=== PATIENT | female | born 1995 | race Caucasian/White ===

== ENCOUNTER → 2020-08-05 | Outpatient (CLI) | payer MEDICAID ==
--- NOTE | 2020-08-06 06:59 | US ---
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 GLAND SIZE: Right Lobe: 5.9 x 1.8 x 1.9 cm Overall Parenchyma: grossly heterogenous Left Lobe: 5.6 x 1.2 x 2.0 cm Overall Parenchyma: grossly heterogenous Isthmus Thickness: 0.4 cm NODULES RIGHT: # of nodules measured on right: 0 LEFT: # of nodules measured on left: 0 ISTHMUS: # of nodules measured in the isthmus: 0 Bilateral neck scanned, no evidence of lymphadenopathy. IMPRESSION: Thyroidomegaly and diffuse glandular heterogeneity. Correlate with thyroid function tests and physica l exam findings.
== END | disposition home or self-care (01) ==
LOC: RADUSWWP 16:17
PROVIDERS: ATTEND Family Medicine
DX: E01.0 Iodine-deficiency related diffuse (endemic) goiter (principal)
CPT/HCPCS: 76536

== ENCOUNTER 2020-08-24 09:03 | Day surgery (SDC) | payer MEDICAID ==
[2020-08-19 15:19] VITALS: BMI 20.3
[~2020-08-24 09:03] MED LIST: LACTATED RINGERS 1,000 ML IV SCH; LIDOCAINE 1% (10MG/ML) FOR IV START INTRADERMA PRN
[2020-08-24 09:18] VITALS: RESP 16; TEMP 97.9
[2020-08-24] MEDS ORDERED: LIDOCAINE HCL/PF 20 MG/ML 10 ML AMP ONE (10:27)
[2020-08-24] MEDS ORDERED: PROPOFOL 10 MG/ML 20 ML VIAL IV ONE (10:27)
--- NOTE | 2020-08-24 10:48 | P.PCN ---
Date of Procedure: 08/24/20 Description of Procedure: BRIEF HISTORY: Patient is a 25-year-old female presenting for outpatient EGD for evaluation of abdominal distention, positive testing for tissue trans glutaminase antibody, abdominal pain. The patient reports symptoms of excess bloating and gas after eating. She complains of abdominal pain in the epigastric and left lower quadrant of her abdomen. She had positive tissue transglutaminase antibody in 05/20/2020 PROCEDURE PERFORMED: Esophagogastroduodenoscopy with biopsy. PREOPERATIVE DIAGNOSIS: Abdominal distention, abdominal pain, positive testing for tissue transglutaminase antibody . ESTIMATED BLOOD LOSS: Minimal. IV sedation per anesthesia. PROCEDURE: After informed consent was obtained, the patient was brought into the endoscopy unit. IV sedation was administered by Anesthesia under continuous monitoring. Initially the Olympus GIF-190 video endoscope was inserted into the mouth. Esophagus intubated without any difficulty. It was gradually advanced into the stomach and duodenum and carefully examined. The bulb and the second part of the duodenum appearedgrossly normal, there was however some evidence of villous blunting suggestive of celiac disease with multiple biopsies taken to rule out celiac disease. The scope at this time was withdrawn to the stomach, adequately insufflated with air, and upon careful examination, mucosa of the antrum, body, cardia and the fundus appeared normal, Except for some mild scattered erythema in the antrum and body suggestive of mild gastritis with biopsies taken of the antrum body. The scope was then withdrawn into the esophagus. The GE junction was located at 39 cm from the incisors and biopsy. The esophagus appeared normal, With esophageal biopsies taken to rule out eosinophilic esophagitis. There were no erosions or ulcerations seen and the patient tolerated the procedure well. IMPRESSION: 1. Mild gastritis . 2. Biopsies of the duodenum, antrum body, GE junction and mid esophagus. RECOMMENDATIONS: The findings of this examination were discussed with the patient. Okay to resume diet. Okay to resume medications. Await pathology from biopsies. Patient should follow-up in clinic in the next 1-2 weeks for results of biopsies. Further recommendations pending findings at that time.
[2020-08-24 11:05] VITALS: BP 113/71; PULSE 66
== END 2020-08-24 11:20 ==
LOC: ORWHC2ENDO 09:03
PROVIDERS: ATTEND Internal Medicine
DX: K29.80 Duodenitis without bleeding (principal); K29.50 Unspecified chronic gastritis without bleeding; K20.0 Eosinophilic esophagitis; Z91.018 Allergy to other foods; Z79.899 Other long term (current) drug therapy
CPT/HCPCS: 81025; 88305; 43239; J2001; J2704

== ENCOUNTER 2024-07-14 16:37 | Outpatient (CLI) | payer MEDICAID ==
[2024-07-14 17:28] VITALS: BP 121/73; PULSE 72; RESP 16; TEMP 97.8
--- NOTE | 2024-07-18 09:21 | P.MSEPDOC ---
Presenting Problems - Arrival Data Date of Arrival on Unit: 07/14/24 Time of Arrival on Unit: 16:35 Mode of Transport: Ambulatory - Complaint OB-Reason for Admission/Chief Complaint: Decreased Movement Comment: for 1 day Medical History - Information : 1 Para: 0 Term: 0 : 0 Abortions: Spontaneous or Elective: 0 Number of Living Children: 0 - Gestational Age Gestational Age by MARYJANE (wks/days): 29 Weeks and 6 Days Review of Systems - Review of Systems Constitutional: No problems Breast: No problems ENT: No problems Cardiovascular: No problems Respiratory: No problems Gastrointestinal: No problems Genitourinary: No problems Musculoskeletal: No problems Neurological: No problems Skin: No problems Vital Signs - Temperature Temperature: 97.8 F Temperature Source: Oral - Pulse Right Brachial Pulse Rate: 72 Pulse Assessment Method: Automatic Cuff - Respirations Respiratory Rate: 16 O2 Sat by Pulse Oximetry: 99 - Blood Pressure Right Arm Blood Pressure: 121/73 Blood Pressure Mean: 89 Blood Pressure Source: Automatic Cuff Medical Screen Scoring - Cervical Exam Membranes: Intact - Assessment - Baby A Baseline FHR: 125 Heart Rate - NICHD Category: Category I (Normal) NST: Reactive Physician Notification - Physician Notified Physician Notified Date: 07/14/24 Physician Notified Time: 16:58 Physician: William Greer Order Received: Yes Maternal Triage Index - Maternal Triage Index Presenting for scheduled procedure w/no complaint: No - Stat/Priority 1 Stat Priority 1: No - Urgent/Priority 2 Urgent Priority 2: No - Prompt/Priority 3 Prompt Priority 3: No - Non-Urgent/Priority 4 Non-Urgent Priority 4: Yes Criteria Met for Priority 4: decreased movement for 1 day Disposition - Disposition OB Disposition: Discharge to home, Written follow up instructions reviewed Discharge Date: 07/14/24 Discharge Time: 17:05 I agree with the RN Medical Screening Exam: Yes Physician's MSE Comment: I have neither seen nor examined the patient. Case reviewed; plan agreed upon as documented in EMR&OBIX.: Yes Diagnosis: RELATED CONDITIONS, UNSPECIFIED, THIRD TRIMESTER
== END 2024-07-14 17:05 | disposition home or self-care (01) ==
LOC: FBPOP 16:37
PROVIDERS: ATTEND Obstetrics & Gynecology
CPT/HCPCS: 59025; 99213

== ENCOUNTER 2024-09-25 05:56 | Inpatient (IN) | payer BC ==
[2024-09-25] MEDS ORDERED: OXYTOCIN 10 UNIT/ML 1 ML VIAL IM PRN (06:13)
[2024-09-25] MEDS ORDERED: CARBOPROST TROMETHAMINE 250 MCG/ML 1 ML AMP IM PRN (06:13)
[2024-09-25] MEDS ORDERED: miSOPROStoL 200 MCG TAB PO PRN (06:13)
[2024-09-25] MEDS ORDERED: TRANEXAMIC 1,000 MG/100ML-NACL 1,000 MG in EMPTY BAG 1 BAG IV PRN ×2 (06:13→17:28)
[2024-09-25] MEDS ORDERED: LIDOCAINE 0.5% (PF) 5 MG/ML (50 ML SDV) SQ PRN (06:13)
[2024-09-25] MEDS ORDERED: METHYLERGONOVINE 0.2 MG/ML 1 ML AMP IM PRN (06:13)
[2024-09-25] MEDS ORDERED: TERBUTALINE 1 MG/ML VIAL SQ PRN (06:13)
[2024-09-25] MEDS ORDERED: miSOPROStoL 200 MCG TAB RECTAL PRN (06:13)
[2024-09-25] MEDS: LACTATED RINGERS 1,000 ML IV SCH (06:15)
[2024-09-25 06:26] LABS: Basophils % (A) 0 %; Eosinophils # (A) 0.3 k/uL (0-0.7); Eosinophils % (A) 3 %; HCT 38.9 % (34.0-46.0); HGB 12.6 gm/dL (11.4-16.0); Lymphocytes # (A) 1.3 k/uL (1.0-4.8); Lymphocytes % (A) 13 %; MCH 30.3 pg (25.0-35.0); MCHC 32.4 g/dL (31.0-37.0); MCV 93.4 fL (80.0-100.0); Mean Platelet Volume 8.4; Monocytes # (A) 0.5 k/uL (0-1.0); Monocytes % (A) 5 %; Neutrophils # (A) 7.7 k/uL (1.3-7.7); Neutrophils % (A) 77 %; Platelet Count 207 k/uL (150-450); RBC 4.16 m/uL (3.80-5.40); RDW 12.5 % (11.5-15.5)
[2024-09-25] MEDS: OXYTOCIN 30 UNITS/500 ML NS 30 UNIT in SALINE 1 500ML.BAG IV SCH (06:26)
[2024-09-25] MEDS ORDERED: BUTORPHANOL 1 MG/ML 1 ML VIAL IV PRN (08:31)
--- NOTE | 2024-09-25 08:35 | P.HPOB ---
History of Present Illness H&P Date: 09/25/24 Chief Complaint: 40-2/7 weeks, induction The patient is a 29-year-old 1 para 0 admitted at 40-2/7 weeks as established by last menstrual period and confirmed by 7-week ultrasound. She is admitted for postdates induction of labor with all signs reassuring and a favor able cervix, category 1 heart rate tracing. Her has been uncomplicated though she carries a history of HSV for which she has been on Valtrex daily since approximately 35 to 36 weeks. There is no evidence of lesions at this time. She additionally had condyloma at her new OB visit which have resolved since the onset. Her has been otherwise entirely uncomplicated and group B strep status is negative. Obstetrical history: 1 para 0 with current statistics listed in history of present illness. EDC of 09/23/2024 was established by last menstrual period and confirmed by 7-week ultrasound. Laboratory workup demonstrates a blood type of B+ with a negative antibody screen. Rubella status is immune. The remainder of the laboratory workup was within normal limits. 1 hour Glucola was normal and group B strep status is negative. Gynecologic history: No current history of STDs though she carries a history of HSV had condyloma at the onset of . There is no evidence of herpetic lesions at this time nor any condyloma. Review of Systems Review of systems is confined to history of present illness. Past Medical History Past Medical History: No Reported History Additional Past Medical History / Comment(s): celiacs disease, hsv, hpv History of Any Multi-Drug Resistant Organisms: None Reported Past Surgical History: No Surgical Hx Reported Additional Past Surgical History / Comment(s): EGD x2, colonoscopy Past Anesthesia/Blood Transfusion Reactions: No Reported Reaction Past Psychological History: No Psychological Hx Reported Smoking Status: Never smoker Additional Past Alcohol Use History / Comment(s): not during Past Drug Use History: None Reported - Past Family History Father Family Medical History: No Reported History Medications and Allergies Home Medications Medication Instructions Recorded Confirmed Type EPINEPHrine (Auto Inject) [Epipen] 0.3 mg IM ONCE PRN 08/19/20 09/25/24 History Acyclovir 200 mg PO DAILY 07/14/24 09/25/24 History Vit No.179/Iron/Folic 1 tablet PO DAILY 07/14/24 09/25/24 History [ Tablet] Allergies Allergy/AdvReac Type Severity Reaction Status Date / Time gluten Allergy Severe Unknown Verified 09/25/24 06:12 tree nut Allergy Severe Anaphylaxis Verified 09/25/24 06:12 raw vegetable AdvReac Severe Itching Verified 09/25/24 06:12 Exam Vital Signs Temp Pulse Resp BP Pulse Ox 09/25/24 06:17 97.2 F L 83 17 124/80 98 Intake and Output 09/24/24 09/25/24 09/25/24 22:59 06:59 14:59 Other: Weight 81.193 kg In general, this is a well-developed, well-nourished white female in no acute distress. Her heart has a regular rhythm and rate without murmur. Her lungs are clear to auscultation bilaterally in all [place]. Her abdomen is gravid, nondistended, has normal active bowel sounds, is soft, nontender, and without any palpable masses aside from the uterine fundus. Her extremities are without any cyanosis, clubbing, or edema and are nontender to palpation bilaterally. Digital cervical examination demonstrates her cervix to be 2+ centimeters dilated, approximately 50% effaced, with the vertex and presentation at -2 station. Artificial rupture of membranes is carried out demonstrating clear fluid. Results Result Diagrams: 09/25/24 06:16 Assessment and Plan (1) Post-dates Current Visit: Yes Status: Acute Code(s): O48.0 - POST-TERM SNOMED Code(s): 08712477 Plan: The patient has been admitted for induction of labor and Pitocin augmentation has been started. She has just undergone artificial rupture of membranes. She will have close maternal and surveillance and expectant management will be practiced. She is a good candidate for either IV or epidural analgesia, whichev er she may choose.
[2024-09-25] MEDS ORDERED: fentaNYL (PF) 50 MCG/ML 5 ML AMP ONE (13:26)
[2024-09-25] MEDS ORDERED: ROPIVACAINE 5 MG/ML 30 ML VIAL ONE (13:26)
[2024-09-25] MEDS ORDERED: SODIUM CHLORIDE 0.9% 250 ML BAG ONE (13:26)
[2024-09-25] MEDS: CITRIC ACID-SODIUM CITRATE 15 ML CUP PO ONE (17:40)
[2024-09-25] MEDS ORDERED: KETOROLAC 15 MG/ML 1 ML VIAL ONE (18:12)
[2024-09-25] MEDS ORDERED: OXYTOCIN 30 UNITS/500 ML NS BAG IV ONE (18:12)
[2024-09-25] MEDS ORDERED: fentaNYL (PF) 50 MCG/ML 2 ML AMP ONE (18:12)
[2024-09-25] MEDS ORDERED: diphenhydrAMINE 50 MG/ML 1 ML VIAL IVP PRN ×2 (19:02)
[2024-09-25] MEDS ORDERED: METOCLOPRAMIDE 5 MG/ML 2 ML VIAL IVP PRN (19:02)
[2024-09-25] MEDS ORDERED: diphenhydrAMINE 25 MG CAP PO PRN (19:02)
[2024-09-25] MEDS ORDERED: diphenhydrAMINE 50 MG CAP PO PRN (19:02)
[2024-09-25] MEDS ORDERED: ZOLPIDEM 5 MG TAB PO PRN (19:02)
[2024-09-25] MEDS ORDERED: LANOLIN CREAM 1 GM TUBE TOPICAL PRN (19:02)
[2024-09-25] MEDS ORDERED: SIMETHICONE 80 MG CHEWABLE PO PRN (19:02)
[2024-09-25] MEDS ORDERED: NALOXONE 0.4 MG/ML 1 ML VIAL IV PRN (19:02)
--- NOTE | 2024-09-25 19:12 | P.OP ---
Date of Procedure: 09/25/24 Preoperative Diagnosis: #1. 40-2/7 weeks intrauterine #2. Vulvovaginal condyloma Postoperative Diagnosis: Same Procedure(s) Performed: #1. Primary low-transverse section Anesthesia: epidural Surgeon: William Greer Parts And Service Manager #1: Lesley Iqbal Estimated Blood Loss (ml): 460 IV fluids (ml): 1,000 Urine output (ml): 1,000 Pathology: none sent Condition: stable Disposition: floor Operative Findings: Preoperatively during the labor process, the patient's underwent routine straight catheterization after placement of an epidural catheter at which time the nurse had concerns for possible vulvovaginal condyloma. I was called to examine the patient at which time this finding was confirmed. After discussion with the parents regarding the potential for direct transmission to the fetus and potential for oropharyngeal condyloma as well as conjunctival condyloma, the decision was made to bypass the vagina and proceed to primary low-transverse section. The patient was taken to the operating room where she was delivered of a viable 7 pound 10 ounce baby girl with Apgars of 9 at 1 minute and 9 at 5 minutes in the occiput anterior position. The placenta was delivered manually, intact, and grossly normal with a grossly normal three-vessel cord. The uterus, tubes, and ovaries were entirely normal to inspection. Description of Procedure: The patient was prepped and draped in usual fashion after bolusing the epidural analgesic by anesthesia. A Pfannenstiel incision was made and extended into the abdominal cavity without difficulty. The bladder peritoneum was significantly distal to the intended site of incision that it was left intact. A 2 cm incision was made in the transverse plane of the lower uterine segment to enter the uterus at which time clear fluid was again noted. The incision was extended in both directions using the bandage scissors. The head was delivered up from the pelvis and through the incision onto the field where the nose and mouth were thoroughly suction. There were 2 nuchal cords which were reduced on the field at that time. The remainder of the infant was then delivered onto the field where the cord was doubly clamped, cut, and the infant passed for resuscitative measures with weight and Apgars as noted above. A segment of cord was doubly clamped, cut, and set aside should cord gases become necessary. The placenta was delivered manually and intact as noted above. The uterus was exteriorized and the anterior cavity of the uterus swept of any remaining placental or membranous fragments. The margins of the uterine incision were grasped with Núñez clamps and the incision closed in 2 layers. The first layer was a running locking stitch of 0 chromic catgut proceeding from margin to margin followed by a running imbricating stitch of 0 chromic catgut proceeding from margin to margin. Hemostasis appeared to be excellent. The posterior cul-de-sac was suctioned with a guard followed by laparotomy sponge and the uterine and ovarian findings were entirely normal as noted above. The uterus was replaced within the abdominal cavity and the gutters swept of any remaining blood, fluid, or clot. The incision was reexamined and found to be hemostatic. The parietal peritoneum was loosely reapproximated and the layer of muscles examined and made hemostatic with the Bovie. The fascia was closed with a single running stitch of 0 Vicryl proceeding from margin to margin. Subcutaneous tissues were irrigated, made hemostatic with the Bovie, and reapproximated with a running stitch of 3-0 plain catgut. The skin was reapproximated with a running subcuticular stitch of 4-0 Vicryl followed by half-inch Steri-Strips placed with Mastisol. Quantitative blood loss for the case was 460 mL. There were no complications. All sponge, instrument, and needle counts were correct. The patient tolerated the procedure well and proceeded to the recovery room in stable condition. Both mother and are resting comfortably in recovery.
[2024-09-25] MEDS ORDERED: OXYTOCIN 30 UNITS/500 ML NS 30 UNIT in SALINE 1 500ML.BAG IV SCH (19:15)
[2024-09-25] MEDS: ONDANSETRON 4 MG/2 ML VIAL IVP PRN (19:18)
[2024-09-25] MEDS: HYDROmorphone PCA 10 MG/50 ML BAG IV PRN (20:32)
[2024-09-25] MEDS: SENNOSIDES-DOCUSATE SODIUM 1 EACH TAB PO SCH (21:38)
[2024-09-26] MEDS: ACETAMINOPHEN TAB 500 MG TAB PO SCH (01:18)
[2024-09-26] MEDS: KETOROLAC 15 MG/ML 1 ML VIAL IVP PRN (04:51)
[2024-09-26 04:57] LABS: Basophils % (A) 0 %; Eosinophils # (A) 0.1 k/uL (0-0.7); Eosinophils % (A) 1 %; HCT 35.8 % (34.0-46.0); HGB 11.9 gm/dL (11.4-16.0); Lymphocytes # (A) 0.9 k/uL (1.0-4.8); Lymphocytes % (A) 7 %; MCH 31.5 pg (25.0-35.0); MCHC 33.2 g/dL (31.0-37.0); MCV 94.9 fL (80.0-100.0); Mean Platelet Volume 8.4; Monocytes # (A) 0.5 k/uL (0-1.0); Monocytes % (A) 4 %; Neutrophils % (A) 87 %; Platelet Count 172 k/uL (150-450); RBC 3.77 m/uL (3.80-5.40); RDW 12.6 % (11.5-15.5); WBC 12.7 k/uL (3.8-10.6)
--- NOTE | 2024-09-26 11:47 | P.PNOBGPC ---
Subjective - Subjective Patient reports: Reports appetite normal, Reports voiding normally, Reports pain well controlled, Reports ambulating normally : doing well, nursing well Objective - Vital Signs Latest vital signs: Vital Signs Temp Pulse Resp BP Pulse Ox 09/26/24 08:00 98.5 F 72 16 115/72 99 09/25/24 23:13 98.9 F 80 16 111/73 98 09/25/24 21:13 97.1 F L 71 16 112/74 97 09/25/24 20:46 77 16 120/80 96 09/25/24 20:43 64 16 127/78 98 09/25/24 20:16 60 16 125/71 97 09/25/24 20:01 65 16 120/70 97 09/25/24 19:58 59 L 16 105/59 97 09/25/24 19:33 57 L 16 100/59 97 09/25/24 19:18 58 L 16 97/59 96 09/25/24 19:03 97.6 F 63 16 108/65 97 Intake and Output 09/25/24 09/26/24 09/26/24 22:59 06:59 14:59 Output Total 984 900 Balance -984 -900 Output: Urine 900 900 Output, Quantitative 84 Blood Loss Other: # Voids 2 1 - Exam Extremities: Present: normal Abdomen: Present: normal appearance, soft. Absent: distention, tenderness Incision: Present: normal, dry, intact Uterus: Present: normal, firm (The uterine fundus is tonic and appropriately tender well below the umbilicus.) - Labs Labs: Abnormal Lab Results - Last 24 Hours (Table) 09/26/24 Range/Units 04:46 WBC 12.7 H (3.8-10.6) k/uL RBC 3.77 L (3.80-5.40) m/uL Neutrophils # 11.0 H (1.3-7.7) k/uL Lymphocytes # 0.9 L (1.0-4.8) k/uL Assessment and Plan (1) Post-dates Current Visit: Yes Status: Acute Code(s): O48.0 - POST-TERM SNOMED Code(s): 07695061 (2) S/P section Current Visit: Yes Status: Acute Code(s): Z98.891 - HISTORY OF UTERINE SCAR FROM PREVIOUS SURGERY SNOMED Code(s): 062467084 Plan: Continue routine and postoperative care. I have encouraged the patient to ambulate in the hallways routinely. The ESTHETICIAN has been discontinued and she is tolerating oral pain medications. She additionally is tolerating a regular diet. Assuming no complications, I would anticipate the patient's discharge home tomorrow.
[2024-09-26] MEDS: IBUPROFEN 800 MG TAB PO SCH (21:11)
--- NOTE | 2024-09-27 09:01 | P.PNOBGPC ---
Subjective - Subjective Principal diagnosis: s/p section Interval history: The patient is doing well this morning and had no acute events overnight. She has no complaints this morning. She reports minimal lochia, passing flatus, voiding without difficulty, ambulating, and eating/drinking without nausea or vomiting. She is attempting to breast feed although her milk has not come in yet. She denies chest pain, shortness of breathing, fevers, or chills overnight. She denies pain or swelling in the legs. Patient reports: Reports appetite normal, Reports voiding normally, Reports pain well controlled, Reports ambulating normally [place]: doing well Objective - Vital Signs Latest vital signs: Vital Signs Temp Pulse Resp BP Pulse Ox 09/27/24 08:00 98.4 F 69 18 110/74 98 09/26/24 23:41 98.6 F 71 18 122/77 100 09/26/24 16:00 98.7 F 69 16 109/69 98 Intake and Output 09/26/24 09/27/24 09/27/24 22:59 06:59 14:59 Other: # Voids 1 2 1 - Exam Extremities: Present: normal Abdomen: Present: normal appearance, soft Incision: Present: normal, dry, intact Uterus: Present: normal, firm Assessment and Plan Assessment: 29 year old now POD#2 s/p primary section Plan: Patient desires an additional night inpatient. Will reassess for discharge tomorrow.
[2024-09-27] MEDS: BISMUTH SUBSALICYLATE 4,192 MG/240 ML BOTTLE PO PRN (11:31)
[2024-09-28 08:18] VITALS: BP 118/74; PULSE 58; RESP 18; TEMP 98.5
--- NOTE | 2024-09-28 09:07 | P.DS ---
Providers Date of admission: 09/25/24 05:56 Expected date of discharge: 09/28/24 Attending physician: William Greer Primary care physician: Stated None Hospital Course: Ms. Posada is a 29 year old now POD#3 s/p primary section after induction of labor because a vulvovaginal conyloma was noted. Her section and course have been uncomplicated. The patient is doing well this morning and had no acute events overnight. She has no complaints this morning. She reports minimal lochia, passing flatus, voiding without difficulty, ambulating, and eating/drinking without nausea or vomiting. Infant doing well at bedside, nursing is going well. She denies chest pain, shortness of breathing, fevers, or chills overnight. She denies pain or swelling in the legs. Postoperative restrictions are reviewed with the patient including pelvic rest for 6 weeks, no lifting heavier than 15 pounds for 6 weeks. The patient is encouraged to call the office if she experiences any heavy bleeding, foul- smelling discharge, breast complaints, or any if she has any other concerns. She will follow up in the office with Dr. Greer in 2 weeks for postoperative exam. All questions are answered. Assessment: 29 year old now POD#3 s/p primary section Patient Condition at Discharge: Good Plan - Discharge Summary New Discharge Prescriptions: New Ibuprofen [Motrin] 600 mg PO Q6HR PRN #30 tab PRN Reason: Mild Pain (Scale 1 To 3) Acetaminophen Tab [Tylenol] 650 mg PO Q6H PRN #30 tab PRN Reason: Mild Pain (Scale 1 To 3) No Action EPINEPHrine (Auto Inject) [Epipen] 0.3 mg IM ONCE PRN PRN Reason: Anaphylaxis Acyclovir 200 mg PO DAILY Vit No.179/Iron/Folic [ Tablet] 1 tablet PO DAILY Discharge Medication List EPINEPHrine (Auto Inject) [Epipen] 0.3 mg IM ONCE PRN 08/19/20 [History] Acyclovir 200 mg PO DAILY 07/14/24 [History] Vit No.179/Iron/Folic [ Tablet] 1 tablet PO DAILY 07/14/24 [History] Acetaminophen Tab [Tylenol] 650 mg PO Q6H PRN #30 tab 09/28/24 [Rx] Ibuprofen [Motrin] 600 mg PO Q6HR PRN #30 tab 09/28/24 [Rx] Follow up Appointment(s)/Referral(s): William Greer MD [STAFF PHYSICIAN] - 2 Weeks Activity/Diet/Wound Care/Special Instructions: Instructions 1. Do not begin any exercise program for 3 weeks. 2. Do not resume sexual relations for 6 weeks or longer if uncomfortable. 3. You may take tub baths or showers at any time. 4. You may use tampons if desired after 6 weeks. 5. Keep any areas repaired with stitches clean and dry. 6. If you are not nursing, wear a good fitting, supportive bra during the day and limit fluid intake for at least 1 week to prevent breast engorgement. 7. Call the office, , within the next week to make appointment for your 6 week checkup if it has not already been made. 8. Report any of the following occurrences to the doctor promptly: a. Heavy, excessive bleeding b. Chills, fever c. Burning or frequency of urination d. Pain or redness and breasts if nursing e. Increasing pain or swelling of vulva (stitches). In addition to the above instructions, the following additional should be followed: 1. No heavy lifting or straining (exercising) until after 6 week checkup. 2. Keep abdominal incision clean and dry: You may wear a dressing if more comfortable. 3. Make office appointment for 2 weeks after delivery date. Discharge Disposition: HOME SELF-CARE
== END 2024-09-28 12:14 | disposition home or self-care (01) | DRG 787 ==
LOC: 4FBP 05:56
PROVIDERS: ADMIT Obstetrics & Gynecology; ATTEND Obstetrics & Gynecology
PROC: 10907ZC Drainage of Amniotic Fluid, Therapeutic from Products of Conception, Via Natural or Artificial Opening (ICD-10-PCS; 2024-09-25)
PROC: 3E033VJ Introduction of Other Hormone into Peripheral Vein, Percutaneous Approach (ICD-10-PCS; 2024-09-25)
PROC: 10D00Z1 Extraction of Products of Conception, Low, Open Approach (ICD-10-PCS; principal; 2024-09-25 18:43)
DX: O48.0 Post-term pregnancy (principal); O98.32 Other infections with a predominantly sexual mode of transmission complicating childbirth; A63.0 Anogenital (venereal) warts; O99.62 Diseases of the digestive system complicating childbirth; K90.0 Celiac disease; Z37.0 Single live birth; Z3A.40 40 weeks gestation of pregnancy; Z86.19 Personal history of other infectious and parasitic diseases; Z79.899 Other long term (current) drug therapy
CPT/HCPCS: 85025; 86850; 86900; 86901